=== PATIENT | male | born 1960 | race Caucasian/White ===

== ENCOUNTER 2017-07-26 16:37 | Emergency (ER) | payer OTHER ==
[~2017-07-26] VITALS: Ht 177.8 cm; Wt 65.9 kg
--- NOTE | ~2017-07-26 | CR20 ---
[facility] A Service of [facility] & [facility] RADIOLOGY TEXT RESULTS PATIENT: GIANNA GARNETT LOCATION: [facility] : 62 UNIT #: [id number] AGE: [address]: Olga Wisdom APRN SEX: M ORDER DR: [id number] [facility] [address] [place], [place] [address] [id number] E MR#: [id number] Acc #: [id number] NAME: GIANNA GARNETT. : 1960 SEX: M STUDY DATE/TIME: 07/26/2017 17:07 UNIT: [facility] ROOM: STUDY DESCRIPTION: CR Ankle Min 3 Views Lt Attending Physician: Olga Wisdom A.P.R.N. Ordering Physician: Ed Orion Sadler M.D. Primary Care Physician: No Primary Care Physician MEDICAL IMAGING REPORT This report is preliminary unless electronic signature is present EXAM Left ankle series, 07/26/2017. HISTORY Jumped off a roof. Fall from garage roof. Pain/swelling began today. FINDINGS AP lateral and oblique radiographs of the left ankle are presented. Abnormal examination. Comminuted intraarticular fracture of the calcaneus. Fracture planes are in multiple directions with extension of fracture planes into the subtalar joint and the calcaneocuboid joint. The calcaneal fracture fragments remain in near anatomic alignment without significant distraction or displacement evident. There are linear lucencies suggested along the inferior cortex of the talus at the subtalar joint and along the posterior aspect of the talus concerning for talar fractures. There is a lucency through the superomedial talar dome concerning for nondisplaced small talar dome fracture. There is a cortical irregularity along the anterior articular surface of the tibia on the lateral view concerning for nondisplaced tibial fracture. This is questionable. If it is a fracture, the fragment measures about 3-4 mm. The visualized bones of midfoot appear intact. There is circumferential soft tissue swelling most pronounced posteriorly and laterally. There is no soft tissue defect. Dictated by... Seth Braswell M.D. THIS IS AN ELECTRONICALLY VERIFIED REPORT Seth Braswell M.D. at 07/29/2017 12:58 PM PRINCEK/charles [facility]. [facility] A Service of [facility] RADIOLOGY TEXT RESULTS PATIENT: GIANNA GARNETT [id number] [birth year] UNIT #: [id number] AGE: [address]: Olga Wisdom APRN SEX: M ORDER DR: TD: 07/27/2017 20:34 JOB #: [id number] MEDICAL IMAGING REPORT Page 1 of 1 COPY
--- NOTE | ~2017-07-26 | CR126 ---
[facility] A Service of [facility] & [facility] RADIOLOGY TEXT RESULTS PATIENT: GIANNA GARNETT LOCATION: [facility] : 62 UNIT #: [id number] AGE: [address]: Olga Wisdom APRN SEX: M ORDER DR: [id number] [facility] [address] [place], [place] [address] [id number] E MR#: [id number] Acc #: [id number] NAME: GIANNA GARNETT. : 1960 SEX: M STUDY DATE/TIME: 07/26/2017 17:08 UNIT: [facility] ROOM: STUDY DESCRIPTION: CR Foot Complete Min 3 View Lt Attending Physician: Olga Wisdom A.P.R.N. Ordering Physician: Ed Doc Maryann Sadler Primary Care Physician: No Primary Care Physician MEDICAL IMAGING REPORT This report is preliminary unless electronic signature is present EXAM Left foot series, 07/26/2017. HISTORY Fall from garage roof. Pain and swelling, happened 07/26/2017. FINDINGS AP, lateral oblique radiographs of the left foot are presented. Redemonstrated is the comminuted intraarticular calcaneal fracture. See ankle series for full assessment. Multiple fracture planes. Fracture planes enter the calcaneocuboid and subtalar joint. The dominant fracture fragments remain in near-anatomic alignment with no significant distraction, displacement or angulation. Questionable cortical fracture of the inferior talus at level of the subtalar joint. There appears to be a fracture posterior talus on lateral view without significant distraction or displacement. There is a small chip fracture suggested at the anterior articular surface of the tibia on the lateral view. The tarsal navicular, cuboid bone, cuneiforms and bones of the digital rays appear intact. The tarsal, metatarsal and metatarsal phalangeal and interphalangeal joint relationships are normal. There is circumferential soft tissue swelling around the ankle more pronounced posteriorly and laterally but there is no soft tissue defect or subcutaneous air. Dictated by... Seth Braswell M.D. THIS IS AN ELECTRONICALLY VERIFIED REPORT Seth Braswell M.D. at 07/29/2017 12:58 PM Valdo TD: 07/27/2017 20:45 [facility] A Service of [facility] & [facility] RADIOLOGY TEXT RESULTS PATIENT: GIANNA GARNETT LOCATION: [facility] : 62 UNIT #: [id number] AGE: [address]: Olga Wisdom APRN SEX: M ORDER DR: JAN #: [id number] MEDICAL IMAGING REPORT Page 1 of 1 COPY
--- NOTE | ~2017-07-26 | CT92 ---
[facility] A Service of [facility] & [facility] RADIOLOGY TEXT RESULTS PATIENT: GIANNA GARNETT LOCATION: [facility] : 62 UNIT #: [id number] AGE: [address]: Olga Wisdom APRN SEX: M ORDER DR: [id number] [facility] [address] [place], [place] [address] [id number] E MR#: [id number] Acc #: [id number] NAME: GIANNA GARNETT. : 1960 SEX: M STUDY DATE/TIME: 07/26/2017 18:33 UNIT: [facility] ROOM: STUDY DESCRIPTION: CT Lower Ext Lt Wo Cont Attending Physician: Olga Wisdom A.P.R.N. Referring Physician: Amari Bocanegra M.D. Ordering Physician: Rosendo Sadler M.D. Primary Care Physician: Jessica Primary Care Physician MEDICAL IMAGING REPORT This report is preliminary unless electronic signature is present EXAM CT left ankle without contrast, 07/26/2017. HISTORY 56-year-old male with left ankle pain and swelling, status post jumping off a garage and landing on heel today. Calcaneus fracture. COMPARISON Left ankle and foot x-rays, 07/26/2017. TECHNIQUE Helical scan performed through the left hind foot without IV contrast. Multiplanar reformatted images. This CT exam was performed with one or more of the following radiation dose reduction techniques: automatic exposure control, adjustment of mA and/or kV according to patient size, and iterative reconstruction. FINDINGS There is a markedly comminuted intraarticular fracture of the calcaneus. This consists of a complex compression type fracture with horizontal oblique fracture lines extending from the midbody to the inferior aspect of the calcaneal tuberosity as well as the dorsal cortex of the tuberosity. There are sagittal oblique shear type fracture lines involving the posterior facet of the subtalar joint. The pattern is consistent with Roth classification type 3AB. There is at least 6 mm gap at the lateral aspect of the posterior facet articular surface, and 4 mm of gap at the medial aspect of the posterior facet articular surface. No significant step-off or depression. There is articular involvement of the anterior facet without significant gap or step-off. There is a nondisplaced articular involvement of the cuboid articulation. There is marked comminution of the lateral wall of the calcaneus. Mild comminution of the medial wall. [facility] A Service of [facility] RADIOLOGY TEXT RESULTS PATIENT: GIANNA GARNETT LOCATION: [facility] : 62 UNIT #: [id number] AGE: [address]: Olga Wisdom PIN INSERTER SEX: M ORDER DR: There is a small nondisplaced articular fracture involving the posterolateral aspect of the talus at the posterior facet of the subtalar joint. There is a focal osteochondral lesion of the medial aspect of the talar dome measuring 8 x 12 mm in size. No significant ankle effusion. Flexor and extensor tendons appear grossly unremarkable. No evidence of tendon entrapment. IMPRESSION 1. Markedly comminuted intraarticular fracture of the calcaneus, detailed above. This involves both tongue type and joint depression type compression fractures of the calcaneal body and Roth classification type 3AB shear type fractures of the calcaneus with involvement of the posterior facet subtalar joint. 2. Small nondisplaced articular fracture involving the posterolateral aspect of the talus at the posterior facet subtalar joint. 3. Focal osteochondral lesion of the medial talar dome measuring 8 x 12 mm. 4. No evidence of tendon entrapment. Dictated by... Mahamed Marie M.D. THIS IS AN ELECTRONICALLY VERIFIED REPORT Mahamed Marie M.D. at 07/27/2017 10:59 PM SHANELL/charles TD: 07/27/2017 22:34 JOB #: [id number] MEDICAL IMAGING REPORT Page 1 of 1 COPY
[~2017-07-26 16:37] MED LIST: ASPIRIN81 M2 PO; GABAPENTIN300 MG PO; HYDROXYZINE PAM25 M1 PO; LISINOPRIL5 MG PO; LORTAB 7.5-3251 EACH PO; OMEPRAZOLE40 M1 PO; PROZAC40 M1 PO; SEROQUEL50 M1 PO
== END 2017-07-26 19:10 | disposition left against medical advice (07) ==
LOC: CED 16:37 → CFTX 16:37 → CED 17:23 → CFTX 19:10
DX: S92.062A Displaced intraarticular fracture of left calcaneus, initial encounter for closed fracture (principal); I10 Essential (primary) hypertension; K21.9 Gastro-esophageal reflux disease without esophagitis; Z79.899 Other long term (current) drug therapy; F17.210 Nicotine dependence, cigarettes, uncomplicated; W19.XXXA Unspecified fall, initial encounter; Y92.009 Unspecified place in unspecified non-institutional (private) residence as the place of occurrence of the external cause
CPT/HCPCS: 73610; 73630; 73700; 99284

== ENCOUNTER 2017-07-27 13:30 | Emergency (ER) | payer OTHER ==
[~2017-07-27] VITALS: Ht 180.3 cm; Wt 61.2 kg
== END 2017-07-27 16:05 | disposition home or self-care (01) ==
LOC: CED 13:30
DX: S92.062A Displaced intraarticular fracture of left calcaneus, initial encounter for closed fracture (principal); S92.102A Unspecified fracture of left talus, initial encounter for closed fracture; F17.200 Nicotine dependence, unspecified, uncomplicated; W17.89XA Other fall from one level to another, initial encounter; Y92.009 Unspecified place in unspecified non-institutional (private) residence as the place of occurrence of the external cause
CPT/HCPCS: 29515; 99283